=== PATIENT | female | born 1955 | race Caucasian/White ===

== ENCOUNTER 2018-07-08 17:18 | Emergency (ER) | payer BC ==
[~2018-07-08] VITALS: Ht 160 cm; Wt 65.9 kg
[~2018-07-08 17:18] MED LIST: CYCL10TA7 PO; HYDR-3498 PO; IBUP-1542 PO
[2018-07-08 17:41] VITALS: Ht 160 cm; Wt 65.9 kg
[2018-07-08] MEDS ORDERED: ACETAMINOPHEN 325 MG TAB PO ONE (18:30)
--- NOTE | 2018-07-08 19:27 | ERD ---
ER Documentation Chief Complaint Chief Complaint headache x 2 weeks ROS All systems reviewed and are negative except as per history of present illness. Medications Home Meds Active Scripts Cyclobenzaprine Hcl* (Cyclobenzaprine Hcl*) 10 Mg Tablet, 10 MG PO TID, #15 TAB Prov:BENNY GRIER NP 10/18/15 Ibuprofen* (Motrin*) 600 Mg Tab, 600 MG PO Q6H PRN for PAIN AND OR ELEVATED TEMP, #30 TAB Prov:BENNY GRIER NP 10/18/15 Hydrocodone Bit-Acetaminophen* ([place]*) 5-325 Mg Tab, 1 TAB PO Q6 PRN for PAIN, #20 TAB Prov:BENNY GRIER NP 10/18/15 Ibuprofen* (Motrin*) 600 Mg Tab, 600 MG PO Q6H PRN for PAIN AND OR ELEVATED TEMP, #30 TAB Prov:BRANDON BIRCH PA-C 09/12/15 Allergies Allergies: Coded Allergies: No Known Allergy (Unverified , 10/18/15) PMhx/Soc History of Surgery: Yes (right breast biopsy) Hx Alcohol Use: No Hx Substance Use: No Hx Tobacco Use: Yes Smoking Status: Current every day smoker Physical Exam Vitals Vital Signs Date Temp Pulse Resp B/P (MAP) Pulse Ox O2 O2 Flow FiO2 Time Delivery Rate 07/08/18 98.9 76 18 132/61 97 17:41 (84) Physical Exam Const: No acute distress Head: Atraumatic Eyes: Normal Conjunctiva ENT: Normal External Ears, Nose and Mouth. Neck: Full range of motion. No meningismus. Resp: Clear to auscultation bilaterally Cardio: Regular rate and rhythm, no murmurs Abd: Soft, non tender, non distended. Normal bowel sounds Skin: No petechiae or rashes Back: No midline or flank tenderness Ext: No cyanosis, or edema Neur: Awake and alert Psych: Normal Mood and Affect Results 24 hrs Current Medications Medications Dose Sig/Vanessa Start Time Status Last (Trade) Ordered Route PRN Stop Time Admin Dose Reason Admin 650 mg ONCE ONCE 07/08/18 DC 07/08/18 Acetaminophen PO 18:30 18:38 (Tylenol 07/08/18 18:31 Tab) Departure Diagnosis: Primary Impression: Headache Headache type: unspecified Headache chronicity pattern: chronic headache Intractability: not intractable Qualified Codes: R51 - Headache Condition: Fair Patient Instructions: Self-Care for Headaches Referrals: [facility] YOU HAVE RECEIVED A MEDICAL SCREENING EXAM AND THE RESULTS INDICATE THAT YOU DO NOT HAVE A CONDITION THAT REQUIRES URGENT TREATMENT IN THE EMERGENCY DEPARTMENT. FURTHER EVALUATION AND TREATMENT OF YOUR CONDITION CAN WAIT UNTIL YOU ARE SEEN IN YOUR DOCTORS OFFICE WITHIN THE NEXT 1-2 DAYS. IT IS YOUR RESPONSIBILITY TO MA KE AN APPOINTMENT FOR FOLOW-UP CARE. IF YOU HAVE A PRIMARY DOCTOR --you should call your primary doctor and schedule an appointment IF YOU DO NOT HAVE A PRIMARY DOCTOR YOU CAN CALL OUR PHYSICIAN REFERRAL HOTLINE AT IF YOU CAN NOT AFFORD TO SEE A PHYSICIAN YOU CAN CHOSE FROM THE FOLLOWING [facility] [address] [facility]. [facility] [address] [employer] [facility] [address] [facility] [facility] [address] [facility]. [facility] [address] [facility]. [facility] [address] Additional Instructions: Call your primary care doctor TOMORROW for an appointment during the next 1-2 days.See the doctor sooner or return here if your condition worsens before your appointment time. MAAME HOOPER DO Jul 08, 2018 19:27
[2018-07-08 19:33] VITALS: BP 139/72; PULSE 65; RESP 16
== END 2018-07-08 19:34 | disposition home or self-care (01) ==
LOC: FTE 17:18
DX: R51 Headache (principal); F17.210 Nicotine dependence, cigarettes, uncomplicated
CPT/HCPCS: 70450; 99284; Z7610